=== PATIENT | male | born 2000 | race Caucasian/White ===

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

== ENCOUNTER 2018-03-09 22:24 | Emergency (ER) | payer BC ==
[2018-03-10 00:32] LABS: ABS Basophils 0 10^3/ul (0-0.2); ABS Eosinophils 0.1 10^3/ul (0-0.6); ABS Lymphocytes 1.7 10^3/ul (1.0-4.8); ABS Monocytes 0.6 10^3/ul (0-0.8); ABS Neutrophils 4.5 10^3/ul (1.5-7.7); ABS Nucleated RBC 0.1 10^3/ul; Eosinophil % 1.4 % (0-6); Hematocrit 45 % (42-52); Hemoglobin 15.4 g/dl (14.0-18.0); Lymphocyte % 24.9 % (25-47); Mean Corpuscular HGB Conc 34 g/dl (31-36); Mean Corpuscular Hemoglobin 28 pg (27-31); Mean Corpuscular Volume 83 fL (80-94); Mean Platelet Volume 8.3 um3 (7.4-10.4); Nucleated Red Blood Cells % 0.8; Platelet Count 189 10^3/ul (150-450); Red Cell Distribution Width 13 % (10.5-15); White Blood Count 6.9 10^3/ul (3.5-10.8)
--- NOTE | 2018-03-10 00:33 | ED ---
GI/ HPI - HPI Summary HPI Summary: 18 male presents with epigastric pain today. He states that 3 days ago he has a sore throat and was seen and started on sulfracrate and omeprazole. he states today he developed epigastric pain after he ate a large dinner and felt some abdominal fullness. No previous belly surgery. No fever. No nausea and no vomiting. No diarrhea or constipation. - History of Current Complaint Chief Complaint: EDAbdPain Time Seen by Provider: 03/09/18 23:57 Stated Complaint: ABD PAIN/TINGLING FACE Pain Intensity: 3 - Allergy/Home Medications Allergies/Adverse Reactions: Allergies Allergy/AdvReac Type Severity Reaction Status Date / Time No Known Allergies Allergy Verified 09/08/17 19:21 Home Medications: Home Medications NK [No Home Medications Reported] 03/10/18 [History Confirmed 03/10/18] PMH/Surg Hx/FS Hx/Imm Hx Endocrine/Hematology History: Denies: Hx Anticoagulant Therapy Cardiovascular History: Denies: Hx Hypertension - Immunization History Immunizations Up to Date: Yes Infectious Disease History: No Infectious Disease History: Denies: Traveled Outside the [place] in Last 30 Days - Family History Known Family History: Negative: Respiratory Disease Family History: denies family history of skin disorders, eczema,hydranitis - Social History Alcohol Use: Occasionally Substance Use Type: Reports: None Hx Tobacco Use: No Smoking Status (MU): Never Smoked Tobacco Review of Systems Negative: Fever Negative: Chest Pain Negative: Shortness Of Breath Positive: Abdominal Pain. Negative: Vomiting, Diarrhea, Nausea All Other Systems Reviewed And Are Negative: Yes Physical Exam Triage Information Reviewed: Yes Vital Signs On Initial Exam: Initial Vitals Temp Pulse Resp BP Pulse Ox 98.4 F 94 16 158/87 100 03/09/18 22:52 03/09/18 22:52 03/09/18 22:52 03/09/18 22:52 03/09/18 22:52 Vital Signs Reviewed: Yes Appearance: Positive: Well-Appearing Skin: Positive: Warm, Dry Head/Face: Positive: Normal Head/Face Inspection Eyes: Positive: Normal, Conjunctiva Clear ENT: Positive: Pharynx normal Respiratory/Lung Sounds: Positive: Clear to Auscultation, Breath Sounds Present Cardiovascular: Positive: Normal, RRR Abdomen Description: Positive: Nontender, Soft Bowel Sounds: Positive: Present Musculoskeletal: Positive: Normal Neurological: Positive: Normal Psychiatric: Positive: Normal Diagnostics - Vital Signs Vital Signs Temp Pulse Resp BP Pulse Ox 03/09/18 22:52 98.4 F 94 16 158/87 100 - Laboratory Lab Statement: Any lab studies that have been ordered have been reviewed, and results considered in the medical decision making process. GIGU Course/Dx - Course Course Of Treatment: 18 male presents with epigastric pain today. He states that 3 days ago he has a sore throat and was seen and started on sulfracrate and omeprazole. he states today he developed epigastric pain after he ate a large dinner and felt some abdominal fullness. No previous belly surgery. No fever. No nausea and no vomiting. No diarrhea or constipation. On exam nontender abdomen. on exam normal u/s and labs wnl. told to stop sulcracrate and continue omeprazole for 2 weeks. patient understand and agrees with plan. - Diagnoses Differential Diagnoses - Male: Esophagitis/Gastritis, Gall Bladder Disease, Gerd Provider Diagnoses: Epigastric pain Discharge - Sign-Out/Discharge Documenting (check all that apply): Patient Departure - Discharge Plan Condition: Good Disposition: HOME Patient Education Materials: Epigastric Pain (ED) Referrals: Non Staff,Doctor [Primary Care Provider] - Additional Instructions: continue omeprazole for two weeks Avoid acidic foods Elevated head of bed Stay upright for at least 30 mins after eating Follow up with primary if no improvement Return to ED if develop any new or worsening symptoms - Billing Disposition and Condition Condition: GOOD Disposition: Home
--- NOTE | 2018-03-10 00:35 | RAD ---
EXAM: US Abdomen Limited, Right Upper Quadrant EXAM DATE/TIME: 03/10/2018 12:12 AM CLINICAL HISTORY: 18 years old, male; Pain; Abdominal pain; Epigastric; Additional info: Epigastric pain TECHNIQUE: Real-time ultrasound of the abdomen with image documentation. Examination was focused on the right upper quadrant. COMPARISON: No relevant prior studies available. FINDINGS: Liver: Normal. No masses. Gallbladder: Normal gallbladder without stones. Gallbladder wall thickness measures 2.9 mm. Technologist reports no patient pain when imaged over the gallbladder. Common bile duct: Common bile duct measures 2.3 mm. Pancreas: Visualized pancreas is unremarkable. Right kidney: Right kidney measures 11.6 x 4.5 x 6.0 cm. No hydronephrosis, stones, or mass. Aorta: Normal. Inferior vena cava: Normal. IMPRESSION: Normal right upper quadrant ultrasound. To contact [facility] with a general question: Operations Center - [phone] For direct physician to physician contact: Physician Hotline - [phone] [facility] ([facility] Facility ID #[id number])
[2018-03-10 00:43] LABS: EGFR Non-African American 107.6 (>60)
[2018-03-10 01:02] VITALS: BP 121/74
== END 2018-03-10 01:00 | disposition home or self-care (01) ==
LOC: ED 22:24
DX: R10.13 Epigastric pain (principal)
CPT/HCPCS: 36415; 76705; 80053; 83690; 85025; 86140; 99282

== ENCOUNTER 2018-04-01 20:43 | Emergency (ER) | payer BC ==
[2018-04-01 21:24] VITALS: BP 131/88
[2018-04-01] MEDS ORDERED: DOXYcycline CAP(*) 100 MG PO ONE (22:49)
--- NOTE | 2018-04-01 22:57 | UC ---
Complaint Male HPI - HPI Summary HPI Summary: 18 yo WM c/o acute urethral pain noted today x2 episodes at the initial void. Pt states he is a virgin and denies penetrant sex and ONLY engages in Oral sex ONLY. Last oral sex partner was 2 weeks ago. Denies urethral d/c - History of Current Complaint Chief Complaint: UCSkin Stated Complaint: RASH Time Seen by Provider: 04/01/18 21:22 Hx Obtained From: Patient Onset/Duration: Sudden Onset Timing: Constant Severity Initially: Moderate Severity Currently: Moderate Pain Intensity: 0 - Allergies/Home Medications Allergies/Adverse Reactions: Allergies Allergy/AdvReac Type Severity Reaction Status Date / Time No Known Allergies Allergy Verified 09/08/17 19:21 PMH/Surg Hx/FS Hx/Imm Hx Previously Healthy: Yes Other History Of: Negative For: Anticoagulant Therapy - Surgical History Surgical History: None - Family History Known Family History: Negative: Respiratory Disease Family History: denies family history of skin disorders, eczema,hydranitis - Social History Alcohol Use: Occasionally Substance Use Type: None Smoking Status (MU): Never Smoked Tobacco Review of Systems Constitutional: Negative Skin: Negative Eyes: Negative ENT: Negative Respiratory: Negative Cardiovascular: Negative Gastrointestinal: Negative Genitourinary: Dysuria, Frequency, Urgency Motor: Negative Neurovascular: Negative Musculoskeletal: Negative Neurological: Negative Psychological: Negative All Other Systems Reviewed And Are Negative: Yes Physical Exam - Summary Physical Exam Summary: Vital Signs Reviewed: Yes Appearance: Positive: Well-Appearing Skin: Positive: Warm Head/Face: Positive: Normal Head/Face Inspection Eyes: Positive: EOMI, XU ENT: Positive: Hearing grossly normal Neck: Positive: Supple, No Lymphadenopathy Respiratory/Lung Sounds: Positive: Clear to Auscultation Cardiovascular: Positive: RRR, S1, S2 Abdomen Description: Positive: Nontender, Soft Bowel Sounds: Positive: Present exam- uncircumcised, foreskin retractable, small 2mm erytheamtous lesion noted, benign and nonvesicular, No urethral d/c Musculoskeletal: Positive: Normal Neurological: Positive: CN Intact II-III Psychiatric:Positive: Normal Triage Information Reviewed: Yes Vital Signs: Initial Vital Signs Temp 37.4 C 04/01/18 21:19 Pulse 100 04/01/18 21:19 Resp 16 04/01/18 21:19 BP 131/88 04/01/18 21:19 Pulse Ox 100 04/01/18 21:19 Complaint Male Course/Dx - Course Course Of Treatment: nonspecific urethritis- UA neg, but pH high- sent out for cx, GC/Chlamydia RNA, tx with doxy 100 BID x 7 days - Differential Dx/Diagnosis Provider Diagnoses: urethritis Discharge - Sign-Out/Discharge Documenting (check all that apply): Patient Departure All imaging exams completed and their final reports reviewed: Yes - Discharge Plan Condition: Stable Disposition: HOME Prescriptions: DOXYcycline CAP(*) [DOXYcycline 100MG CAP(*)] 100 mg PO BID 7 Days #14 cap Patient Education Materials: Nonspecific Urethritis in Men (ED) Referrals: [facility] [Primary Care Provider] - Additional Instructions: Call next week for urine cx results - Billing Disposition and Condition Condition: STABLE Disposition: Home
== END 2018-04-01 23:05 | disposition home or self-care (01) ==
LOC: UCEAST 20:43
DX: N34.2 Other urethritis (principal)
CPT/HCPCS: 81003; 87086; 87491; 87591; 99202; A9270-GY; G0463